=== PATIENT | male | born 1960 | race Caucasian/White ===

== ENCOUNTER → 2017-11-13 | Outpatient (CLI) | payer MEDICARE, SELFPAY | PROVIDERS: Family Provider Family Medicine; Visit Provider Family Medicine | DX: Z12.2 Encounter for screening for malignant neoplasm of respiratory organs; Z87.891 Personal history of nicotine dependence; F17.200 Nicotine dependence, unspecified, uncomplicated; Z72.0 Tobacco use ==

== ENCOUNTER 2018-02-10 09:04 | Day surgery (SDC) | payer MEDICARE, SELFPAY ==
[2018-02-04 13:52] VITALS: BMI 30.4
[2018-02-10] VITALS (7 sets, daily range): BP systolic 111–155; BP diastolic 45–86; PULSE 59–82; RESP 16–20; TEMP 36.2–36.7; O2SAT 94–97
--- NOTE | 2018-02-10 10:00 | P.PN_ITS ---
[facility] Anesthesia Checklist - Patient Identification Patient Identification: Arm Band, Verbal (Name & ) - Structural Data Admitted From: Home Planned Operative Procedure/s: colonoscopy Consent for Planned Operative Procedure(s) Verified: Yes Verified Documents: Surgical Consent, History and Physical - NPO Status Verified Time NPO: 00:00 - Chart Verification Results Verified: CBC, BMP - Additional verifications Patient : No Anesthesia Reactions: No Hx Blood Transfusions: No Blood Transfusion Reaction: No Cephalosporin Allergy: No Previous Colonoscopy: Yes - Cardiovascular Assessment Heart Sounds: S1 & S2 Pulse Strength: Baseline Pulse Rhythm: Regular Peripheral Edema: No - Airway Assessment C-Spine Mobility Assessed: Yes TMJ Mobility Assessed: Yes Dentition: Edentulous - Neurological Assessment Level of Consciousness: Awake, Alert, Appropriate Hx Seizures: No Numbness or tingling in extremities: No - Anesthesia Plan Anesthesia Risk discussed: Yes Anesthesia Plan: Verified ASA Class: III Anesthesia Type: MAC () [facility] Anesthesia HX I have reviewed the patient's past medical history: Yes Medical History: Reports:: Chronic Obstructive Pulmonary Disease (COPD), Hyperlipidemia, Lung Disease (copd, smoker 1ppd) Denies:: Diabetes Mellitus Type 1, Diabetes Mellitus Type 2, Internal Pacemaker, Seizures Other Surgeries: No: Pacemaker *Family Hx:: Unable to obtain
--- NOTE | 2018-02-10 12:06 | P.PCN_ITS ---
[facility] Procedure Note Procedure Note:: Colonoscopy Procedure Report: Colonoscopy with cold snare polypectomy, snare cautery and Endo Clip placement Endoscopist: Michael Alvarez II, MD Referring physician: Sergei Walker MD Date of Procedure: February 10, 2018 Equipment: Olympus 180 variable stiffness pediatric colonoscope Sedation: MAC sedation Indication: Mr. Dozier is a 57-year-old gentleman who is here for follow-up screening/surveillance colonoscopy. The patient did have a colonoscopy by Dr. Jorge Alberto Jalloh in 2013 and had 2 polyps removed. The preparation at that time was fair. The patient reports no abdominal pain, weight loss, change in his bowel habit or rectal bleeding. He reports no family history of colon cancer. Procedure: Prior to the procedure, a history and physical exam was performed, and patient' s medications and allergies were reviewed. The risks, benefits and alternatives of the sedation and procedure were discussed with the patient. All questions were answered and informed consent was obtained. The patient was brought to the procedure room. Patient identification and proposed procedure were verified by the physician and the nurse. The patient was placed in a left lateral decubitus position and the scope was passed under direct vision. Throughout the procedure, the patient's blood pressure, pulse, and oxygen saturations were monitored continuously. The colonoscopy was accomplished without difficulty. The patient tolerated the procedure well. Findings: On digital rectal examination there was normal rectal tone. There were no external hemorrhoids. The prostate was 2+, smooth, symmetric without nodules. The colonoscope was introduced through the anal canal to the rectum and advanced to the cecum. The ileocecal valve and appendiceal orifice were identified. The scope was advanced a short distance into the ileum which appeared grossly normal. The scope was then withdrawn into the colon. There were 2 diminutive 4-5 mm colon polyps identified in the descending colon ?2 and were removed via cold snare polypectomy. There was a larger pedunculated 30 mm sigmoid polyp that was removed via snare cautery. Because of its location and some patient movement during exam, this was a little more difficult but was removed in entirety. The stalk was clipped using 2 endoclips to prevent post polypectomy bleeding. There were scattered extensive diverticuli throughout the descending and sigmoid colon (LEFT colon). The rectum itself was normal. Upon retroflexion within the rectum there were grade 1 internal hemorrhoids. Impression: 1. Large pedunculated 30 mm sigmoid polyp 2. Diminutive colonic polyps ?2 (descending colon) 3. Extensive left-sided diverticulosis 4. Grade 1 internal hemorrhoids Plan: I will follow-up the polyp histology/pathology and recommend repeat screening colonoscopy again in 1-2 years based upon the more advanced sigmoid polyp. I will discuss this with the patient and family. I would encourage fiber bulk supplementation on a long-term daily maintenance basis.
== END 2018-02-10 13:05 | disposition home or self-care (01) ==
LOC: OUTP 09:06
PROVIDERS: Family Provider Family Medicine; PCP Family Medicine; Visit Provider Internal Medicine Gastroenterology
PROC: 0DJD8ZZ Inspection of Lower Intestinal Tract, Via Natural or Artificial Opening Endoscopic (ICD-10-PCS; CPT 45378; principal; 2018-02-10 11:00)
DX: Z12.11 Encounter for screening for malignant neoplasm of colon (principal); K63.5 Polyp of colon; K57.30 Diverticulosis of large intestine without perforation or abscess without bleeding; K64.0 First degree hemorrhoids; Z86.010 Personal history of colon polyps
CPT/HCPCS: 45380; 45385; 88305

== ENCOUNTER → 2019-09-11 08:26 | Outpatient (CLI) | payer MEDICARE, SELFPAY ==
[2019-09-11 08:44] LABS: Blood Urea Nitrogen 16 mg/dL (7-18); Creatinine,Serum 1.03 mg/dL (0.70-1.30); Estimated Glomerular Filt Rate 74 ml/min (>60); GFR (African American) 89 ML/MIN (>60)
--- NOTE | 2019-09-11 09:07 | US_ITS ---
PROCEDURE: US ABD. AORTA SCREENING CLINICAL INDICATION: ABD PAIN,AAA Hypertension, smoker COMPARISON: No exams were available for comparison FINDINGS: No evidence of abdominal aortic aneurysm. There are some mild atheromatous changes of the aorta. The proximal common iliacs are unremarkable IMPRESSION: No evidence of abdominal aortic aneurysm Dictated by: Talib Simental MD 09/11/2019 12:02 Electronically signed by Talib Simental MD in [place] 09/11/2019 12:02
--- NOTE | 2019-09-11 09:25 | CT_ITS ---
PROCEDURE: CT CHEST W CON CLINCAL INDICATION: CT ABN LUNG SCAN Current smoker and smoker for over 36 years, abnormal low-dose screening CT exam of the chest COMPARISON: Low-dose screening CT exam of the chest 11/13/2017 No exams were available for comparison TECHNIQUE: IV Contrast: 75ml Optiray 350 Axial images obtained with sagittal and coronal reformats. All CT scans at the facility use one or more dose reduction, viz: automated exposure control, ma/kV adjustment per patient size (including targeted exams where dose is matched to indication, i.e. head), or iterative reconstruction technique. FINDINGS: HEART: Unremarkable. Normal heart size. No significant pericardial effusion. MEDIASTINAL AND HILAR STRUCTURES: There small calcified bilateral hilar and subcarinal nodes. PULMONARY ARTERIES: The timing for vascular opacification of the pulmonary less than satisfactory but there is no obvious pulmonary embolus.. AORTA: There is mild aortic tortuosity LUNGS: There is marked hyperexpansion of the lung dominguez with depression of the hemidiaphragms. Severe far advanced emphysematous changes are noted primarily centrilobular type. The changes are most severe in the upper lobes bilaterally. Fibrotic scarring is seen in the right apex with multiple calcifications noted. There is a large jalyn posterior segment right upper lobe measuring 11.8 by 9.3 cm on the axial image by 10.2 cm superior inferior dimension on the coronal sequence extending from the level of the top of the aortic arch to the lung apex. PLEURAL SPACES: No significant effusion. No evidence of pneumothorax. BONY STRUCTURES: There is mild diffuse dextroscoliotic curvature of the upper thoracic spine. LYMPH NODES: Calcified bilateral hilar and subcarinal nodes as noted UPPER ABDOMEN: The right adrenal gland appears normal, there may be mild hyperplasia left adrenal gland. ADDITIONAL FINDINGS: No other significant abnormalities. IMPRESSION: Severe far advanced centrilobular emphysema primarily involving the upper lobes with evidence of old granulomatous disease, no acute pneumonic infiltrate or pulmonary embolus identified Dictated by: Dr. Sriram Corona MD 09/11/2019 12:[address] Sriram Corona MD in [place] 09/11/2019 12:57
== END ==
PROVIDERS: PCP Family Medicine; Visit Provider Family Medicine
DX: Z13.6 Encounter for screening for cardiovascular disorders (principal); R91.8 Other nonspecific abnormal finding of lung field
CPT/HCPCS: 36415; 71260; 76705; 82565; 84520; Q9967

== ENCOUNTER → 2020-04-01 14:47 | Outpatient (CLI) | payer MEDICARE, SELFPAY ==
--- NOTE | 2020-04-01 14:54 | CT_ITS ---
PROCEDURE: CT LUNG SCREENING CLINICAL INDICATION: H/O NICOTINE DEPENDENCE 30+ pack smoking history COMPARISON: CT CHEST W CON from 09/11/2019 TECHNIQUE: The exam was performed on a GE Light Speed [address] scanner using 2.90 mGy CTDI. A low dose helical CT CHEST was performed on a multi-detector scanner. All CT scans at the facility use one or more dose reduction, viz: automated exposure control, ma/kV adjustment per patient size (including targeted exams where dose is matched to indication, i.e. head), or iterative reconstruction technique. The LDCT was performed in a facility that meets the criteria for the screening program. Data regarding this exam was submitted to ACR which is an approved registry. The order for this exam indicates that it came as a result of a lung cancer screening counseling shard decision-making visit that included all the elements required of such a visit including smoking cessation. The radiologist interpreting this exam meets the [facility] criteria for the LDCT lung cancer screening program. The exam is reported using the Lung-RADS classification scale and reported to the ACR registry. NOTE: This study was performed for the specific purposes of lung cancer screening and is not an alternative to diagnostic chest CT. RADIATION DOSE: CTDI vol(CT dose Index-volume) = 2.90mG DLP (Dose Length Product) = 114.38 mGcm Lung Rads Category: FINDINGS: Severe panlobular emphysema with bullous changes and evidence of old granulomatous disease with scattered areas of scarring. Fibrocalcific changes are present in the right upper lobe. No suspicious nodules are evident. OTHER FINDINGS: No other pertinent findings evident. IMPRESSION: Lung rads category 2 benign. Recommend 12 month LDCT Dictated by: Talib Simental MD 04/17/2020 09:52 Electronically signed by Talib Simental MD in [place] 04/17/2020 09:52
== END ==
PROVIDERS: PCP Family Medicine; Visit Provider Family Medicine
DX: Z87.891 Personal history of nicotine dependence (principal); Z12.2 Encounter for screening for malignant neoplasm of respiratory organs

== ENCOUNTER → 2022-02-06 15:01 | Outpatient (CLI) | payer MEDICARE, SELFPAY ==
--- NOTE | 2022-02-06 15:05 | CT_ITS ---
FINAL REPORT CLINICAL HISTORY: smoker, 1 ppd x 40 years. copd and emphysema, no h/o cancer COMPARISON: September 11, 2019 and April 01, 2020 FINDINGS: Low-Dose Chest CT CTDI vol (mGy): 2.90 DLP (mGy-cm): 106.29 Axial images were obtained from the lung apex to the mid abdomen by computed tomography. Low-dose protocol was utilized. FINDINGS: CHEST: There is no axillary mass or adenopathy. There are several borderline size mediastinal lymph nodes. There are calcified mediastinal and hilar lymph nodes. The heart is proper size. There is no pericardial or pleural effusion. Limited images of the upper abdomen are unremarkable. Lung window images demonstrate severe changes of emphysema. There is mild scarring. There are multiple calcified granulomas. There are scattered, less than 5 mm, noncalcified pulmonary nodules which are visual stable from the prior exams. No new mass or suspicious nodule is identified. IMPRESSION: Lung RADS category 1. Recommend 12 month follow-up low-dose chest CT. Reviewed, Interpreted and Dictated by Jorge Alberto Ortega III, MD Transcribed by Rosemary Villatoro Authenticated by Jorge Alberto Ortega III, MD on 02/06/2022 04:41:34 PM [facility]
== END ==
PROVIDERS: PCP Family Medicine; Visit Provider Family Medicine
DX: Z87.891 Personal history of nicotine dependence (principal); Z12.2 Encounter for screening for malignant neoplasm of respiratory organs
CPT/HCPCS: 71271

== ENCOUNTER → 2022-09-24 11:22 | Outpatient (CLI) | payer MEDICARE, SELFPAY ==
[2022-09-24 18:59] LABS: Chol/HDL Ratio 4.3 (1-3.5); Cholesterol 187 mg/dl (140-200); HDL Cholesterol 43 mg/dl (40-60); Triglycerides 148 mg/dl (30-150); VLDL Cholesterol 30 mg/dL (0-40)
[2022-09-24 19:11] LABS: Direct LDL Cholesterol 103.81 mg/dL (100-129)
[2022-09-24 19:33] LABS: Prostate Specific Ag Screen 1.2 ng/ml (0.0-4.0)
[2022-09-25 09:24] LABS: Chloride 97 mmol/L (98-107); Sodium 140 mmol/L (136-145)
[2022-09-25 09:25] LABS: Potassium 5.9 mmoL/L (3.5-5.1)
[2022-09-25 09:27] LABS: Alanine Aminotransferase 27 U/L (12-78); Albumin Level 4.2 g/dl (3.5-5.0); Alkaline Phosphatase 114 U/L (38-126); Anion Gap 13.9 mEq/L (5-15); Aspartate Amino Transferase 29 U/L (17-59); Bilirubin,Total 0.2 mg/dl (0.2-1.3); Blood Urea Nitrogen 18 mg/dl (9-20); Carbon Dioxide 35 mmol/L (22.0-30.0); Estimated Glomerular Filt Rate 98 ml/min (>60); GFR (African American) 118 ML/MIN (>60)
[2022-09-25 09:28] LABS: Albumin/Globulin Ratio 1.6 (1.1-1.8); Calcium 9.6 mg/dl (8.4-10.2); Globulin 2.7 g/dL (1.3-3.2); Glucose 128 mg/dl (74-100); Total Protein,Serum 6.9 g/dl (6.3-8.2)
== END ==
PROVIDERS: PCP Family Medicine; Visit Provider Family Medicine
DX: Z12.5 Encounter for screening for malignant neoplasm of prostate (principal); I10 Essential (primary) hypertension
CPT/HCPCS: 80053; 80061; G0103

== ENCOUNTER → 2023-05-11 09:08 | Outpatient (CLI) | payer MEDICARE, SELFPAY ==
[2023-05-10 17:55] LABS: Chloride 97 mmol/L (98-107)
[2023-05-10 17:56] LABS: Sodium 140 mmol/L (136-145)
[2023-05-10 17:58] LABS: Alanine Aminotransferase 30 U/L (12-78); Alkaline Phosphatase 92 U/L (38-126); Anion Gap 16.5 mEq/L (5-15); Aspartate Amino Transferase 33 U/L (17-59); Bilirubin,Total 0.2 mg/dl (0.2-1.3); Blood Urea Nitrogen 21 mg/dl (9-20); Carbon Dioxide 33 mmol/L (22.0-30.0); Estimated Glomerular Filt Rate 98 ml/min (>60); GFR (African American) 118 ML/MIN (>60)
[2023-05-10 17:59] LABS: Albumin Level 4.1 g/dl (3.5-5.0); Albumin/Globulin Ratio 1.4 (1.1-1.8); Calcium 9.2 mg/dl (8.4-10.2); Globulin 2.9 g/dL (1.3-3.2); Glucose 91 mg/dl (74-100)
[2023-05-10 18:20] LABS: Potassium 6.5 mmoL/L (3.5-5.1)
== END ==
PROVIDERS: PCP Family Medicine; Visit Provider Family Medicine
DX: I10 Essential (primary) hypertension (principal)
CPT/HCPCS: 80053

== ENCOUNTER → 2023-05-21 10:18 | Outpatient (CLI) | payer MEDICARE, SELFPAY ==
[2023-05-21 19:04] LABS: Anion Gap 14.7 mEq/L (5-15); Blood Urea Nitrogen 20 mg/dl (9-20); Calcium 8.8 mg/dl (8.4-10.2); Carbon Dioxide 33 mmol/L (22.0-30.0); Chloride 95 mmol/L (98-107); Estimated Glomerular Filt Rate 114 ml/min (>60); GFR (African American) 138 ML/MIN (>60); Glucose 114 mg/dl (74-100); Potassium 4.7 mmoL/L (3.5-5.1); Sodium 138 mmol/L (136-145)
== END ==
PROVIDERS: PCP Family Medicine; Visit Provider Family Medicine
DX: R73.9 Hyperglycemia, unspecified (principal)
CPT/HCPCS: 80048

== ENCOUNTER → 2023-08-13 11:00 | Outpatient (CLI) | payer MEDICARE, SELFPAY ==
[2023-08-13 20:55] LABS: Chloride 97 mmol/L (98-107); Potassium 4.7 mmoL/L (3.5-5.1); Sodium 138 mmol/L (136-145)
[2023-08-13 20:58] LABS: Alanine Aminotransferase 17 U/L (12-78); Albumin/Globulin Ratio 1.3 (1.1-1.8); Alkaline Phosphatase 94 U/L (38-126); Anion Gap 12.7 mEq/L (5-15); Aspartate Amino Transferase 23 U/L (17-59); Bilirubin,Total 0.3 mg/dl (0.2-1.3); Blood Urea Nitrogen 17 mg/dl (9-20); Carbon Dioxide 33 mmol/L (22.0-30.0); Estimated Glomerular Filt Rate 97 ml/min (>60); GFR (African American) 118 ML/MIN (>60)
[2023-08-13 20:59] LABS: Calcium 8.8 mg/dl (8.4-10.2); Glucose 100 mg/dl (74-100)
== END ==
PROVIDERS: PCP Family Medicine; Visit Provider Family Medicine
DX: I10 Essential (primary) hypertension (principal)
CPT/HCPCS: 80053

== ENCOUNTER → 2023-08-27 14:52 | Outpatient (CLI) | payer MEDICARE, SELFPAY ==
--- NOTE | 2023-08-27 14:56 | CT_ITS ---
FINAL REPORT TECHNIQUE: Axial CT images of the chest were obtained without contrast. Low-dose protocol was utilized. This study was performed with techniques to keep radiation doses as low as reasonably achievable (ALARA). Individualized dose reduction techniques using automated exposure control or adjustment of mA and/or kV according to the patient's size were employed. CLINICAL HISTORY: lung cancer screening smoked 1 pk per day x 40 yrs copd, empysema COMPARISON: 02/06/2022 FINDINGS: CT CHEST WITHOUT, LOW DOSE SCREENING CT Di Vol: 2.90 mGy DLP: 111.51 mGy*cm There is no axillary, mediastinal, or hilar adenopathy. The heart size is normal. There is no pleural or pericardial effusion. The lung windows show a 2 mm right lower lobe nodule seen on image 64 and a 2 mm nodule in the left lower lobe seen on image 59. There are several other less than 5 mm nodules which are stable. No new mass or nodule identified. There is severe emphysema. There are multiple calcified granulomas. Limited images of the upper abdomen demonstrate no acute findings. IMPRESSION: Stable exam. No new mass or nodule. LR Category 1: 12 month follow-up low-dose chest CT is recommended. Reviewed, Interpreted and Dictated by Jorge Alberto Ortega III, MD Transcribed by Tanvi Tamayo Authenticated and [facility]
== END ==
PROVIDERS: PCP Family Medicine; Visit Provider Family Medicine
DX: Z87.891 Personal history of nicotine dependence; Z12.2 Encounter for screening for malignant neoplasm of respiratory organs
CPT/HCPCS: 71271

== ENCOUNTER 2024-09-22 18:36 | Outpatient (CLI) | payer MEDICARE, SELFPAY ==
[2024-09-22 19:23] LABS: Basophils # 0.1 K/mm3 (0-0.2); Eosinophils # 0.4 K/mm3 (0.0-0.4); Eosinophils % 4.3 % (0.1-12.0); Hemoglobin 14.5 g/dL (14.1-18.0); Lymphocytes # 2.8 K/mm3 (0.7-4.5); Lymphocytes % 33.6 % (10-50); Mean Corpuscular HGB Conc 33.7 g/dL (31.8-35.4); Mean Corpuscular Hemoglobin 29.7 pg (27.0-31.2); Mean Corpuscular Volume 88.3 fl (80-94); Mean Platelet Volume 8.4 fl (7.4-10.4); Monocytes # 0.7 K/mm3 (0.1-1.0); Monocytes % 8.2 % (1.7-9.3); Neutrophils # 4.4 K/mm3 (1.8-7.8); Neutrophils % 52.8 % (37.0-80.0); Platelet Count 250 K/mm3 (142-424); Red Blood Count 4.87 M/mm3 (4.60-6.20); Red Cell Distribution Width 13.9 % (11.5-17.5); White Blood Count 8.4 K/mm3 (4.8-10.8)
[2024-09-22 20:04] LABS: Albumin Level 3.9 g/dl (3.5-5.0)
[2024-09-22 20:07] LABS: Alanine Aminotransferase 23 U/L (12-78); Alkaline Phosphatase 84 U/L (38-126); Aspartate Amino Transferase 23 U/L (17-59); Bilirubin,Total 0.4 mg/dl (0.2-1.3); Blood Urea Nitrogen 19 mg/dl (9-20); Carbon Dioxide 32 mmol/L (22.0-30.0); Estimated Glomerular Filt Rate 97 ml/min (>60); GFR (African American) 117 ML/MIN (>60)
[2024-09-22 20:12] LABS: Anion Gap 9.3 mEq/L (5-15); Chloride 102 mmol/L (98-107); Potassium 4.3 mmoL/L (3.5-5.1); Sodium 139 mmol/L (136-145)
[2024-09-22 20:16] LABS: Albumin/Globulin Ratio 1.5 (1.1-1.8); Calcium 8.7 mg/dl (8.4-10.2); Globulin 2.6 g/dL (1.3-3.2); Glucose 132 mg/dl (74-100); Total Protein,Serum 6.5 g/dl (6.3-8.2)
[2024-09-22 20:47] LABS: Thyroid Stimulating Hormone 1.05 uIU/mL (0.465-4.68)
[2024-09-22 22:03] LABS: Prostate Specific Ag Screen 1.6 ng/ml (0.0-4.0)
== END 2024-09-22 23:59 | disposition home or self-care (01) ==
LOC: LAB 18:37
PROVIDERS: PCP Family Medicine; Visit Provider Family Medicine
DX: R53.83 Other fatigue (principal); I10 Essential (primary) hypertension; N40.0 Benign prostatic hyperplasia without lower urinary tract symptoms; Z95.5 Presence of coronary angioplasty implant and graft; Z12.5 Encounter for screening for malignant neoplasm of prostate
CPT/HCPCS: 80053; 84443; 85025; G0103

== ENCOUNTER 2024-12-17 14:02 | Outpatient (CLI) | payer MEDICARE, SELFPAY ==
[2024-12-18 10:02] LABS: Alanine Aminotransferase 26 U/L (12-78); Albumin Level 4.3 g/dl (3.5-5.0); Albumin/Globulin Ratio 1.8 (1.1-1.8); Alkaline Phosphatase 103 U/L (38-126); Aspartate Amino Transferase 29 U/L (17-59); Bilirubin,Total 0.4 mg/dl (0.2-1.3); Blood Urea Nitrogen 22 mg/dl (9-20); Carbon Dioxide 31 mmol/L (22.0-30.0); Chloride 100 mmol/L (98-107); Chol/HDL Ratio 2.8 (1-3.5); Cholesterol 130 mg/dl (140-200); Estimated Glomerular Filt Rate 85 ml/min (>60); GFR (African American) 102 ML/MIN (>60); Globulin 2.4 g/dL (1.3-3.2); Glucose 118 mg/dl (74-100); HDL Cholesterol 46 mg/dl (40-60); Sodium 138 mmol/L (136-145); Total Protein,Serum 6.7 g/dl (6.3-8.2); Triglycerides 135 mg/dl (30-150); VLDL Cholesterol 27 mg/dL (0-40)
[2024-12-18 10:32] LABS: Thyroid Stimulating Hormone 1.06 uIU/mL (0.465-4.68)
== END 2024-12-17 23:59 | disposition home or self-care (01) ==
LOC: LAB.DROPOF 12-21 14:03
PROVIDERS: PCP Family Medicine; Visit Provider Family Medicine
DX: E78.5 Hyperlipidemia, unspecified (principal); I10 Essential (primary) hypertension; E11.9 Type 2 diabetes mellitus without complications; Z95.5 Presence of coronary angioplasty implant and graft
CPT/HCPCS: 80053; 80061; 84443

== ENCOUNTER 2025-01-26 10:05 | Outpatient (CLI) | payer MEDICARE, SELFPAY ==
[2025-01-26 21:34] LABS: Chloride 102 mmol/L (98-107); Potassium 4.5 mmoL/L (3.5-5.1); Sodium 141 mmol/L (136-145)
[2025-01-26 21:37] LABS: Anion Gap 12.5 mEq/L (5-15); Blood Urea Nitrogen 21 mg/dl (9-20); Calcium 9.1 mg/dl (8.4-10.2); Carbon Dioxide 31 mmol/L (22.0-30.0); Estimated Glomerular Filt Rate 75 ml/min (>60); GFR (African American) 91 ML/MIN (>60); Glucose 89 mg/dl (74-100)
== END 2025-01-26 23:59 | disposition home or self-care (01) ==
LOC: LAB.DROPOF 01-27 10:05
PROVIDERS: PCP Family Medicine; Visit Provider Family Medicine
DX: E11.9 Type 2 diabetes mellitus without complications (principal)
CPT/HCPCS: 80048

== ENCOUNTER 2025-10-12 10:00 | Outpatient (CLI) | payer MEDICARE, SELFPAY ==
[2025-10-12 15:40] LABS: Alanine Aminotransferase 26 U/L (12-78); Albumin Level 4.3 g/dl (3.5-5.0); Albumin/Globulin Ratio 1.5 (1.1-1.8); Alkaline Phosphatase 109 U/L (38-126); Anion Gap 9.8 mEq/L (5-15); Aspartate Amino Transferase 28 U/L (17-59); Bilirubin,Total 0.4 mg/dl (0.2-1.3); Blood Urea Nitrogen 19 mg/dl (9-20); Calcium 9.4 mg/dl (8.4-10.2); Carbon Dioxide 31 mmol/L (22.0-30.0); Chloride 99 mmol/L (98-107); Creatinine,Serum 1.00 mg/dl (0.66-1.25); Estimated Glomerular Filt Rate 75 ml/min (>60); GFR (African American) 90 ML/MIN (>60); Globulin 2.8 g/dL (1.3-3.2); Glucose 110 mg/dl (74-100); Potassium 4.8 mmoL/L (3.5-5.1); Sodium 135 mmol/L (136-145); Total Protein,Serum 7.1 g/dl (6.3-8.2)
--- OUTSIDE RECORDS SUMMARY | 2025-10-13 15:06 | XMS_ITS | Clinical Summary ---
Author Organization [facility] Address [address] [place] [address] Phone Care Team Providers Care Administrative Director Name Role Phone Miri Baker DO Primary Care Provider Allergies No known active allergies Medications albuterol sulfate (ACCUNEB) 2.5 mg/0.5 mL Inhl Solution for Nebulization Take 2.5 mg by nebulization 0800, 1200, 1600, 2000. Active PARoxetine (PAXIL) 20 mg Oral TabletIndicatio ns:Generalized anxiety disorder TAKE 1 TABLET BY MOUTH ONCE DAILY FOR NERVES 01/27/20 24 Active aspirin 81 mg Oral Tablet, Chewable Take 1 Tablet by mouth daily (with breakfast). 03/26/20 24 Active lisinopriL-hydr ochlorothiazide (PRINZIDE;ZESTO RETIC) 20-12.5 mg Oral TabletIndicatio ns:Essential hypertension Take 1 Tablet by mouth daily. 05/06/20 24 Active ticagrelor (BRILINTA) 90 mg Oral Tablet Take 1 Tablet by mouth 2 times daily. 180 Tablet 3 09/08/20 24 Active atorvastatin (LIPITOR) 80 mg Oral TabletIndicatio ns:Hyperlipidem ia with target LDL less than 100 Take 1 Tablet by mouth daily for 360 days. 07/29/20 25 2025 Active metoprolol (LOPRESSOR) 25 mg Oral Tablet Take 0.5 Tablets by mouth every 12 hours. 90 Tablet 2 08/03/20 25 Active metFORMIN (GLUCOPHAGE) 500 mg Oral Tablet Take 500 mg by mouth 2 times daily. 06/26/20 25 Active ezetimibe (ZETIA) 10 mg Oral Tablet TAKE 1 TABLET EVERY NIGHT 90 Tablet 3 09/15/20 Active ezetimibe (ZETIA) 10 mg Oral Tablet TAKE 1 TABLET EVERY NIGHT 90 Tablet 3 11/26/19 25 2024 Discontinued Active Problems Problem Noted Date Diagnosed Date Prediabetes 07/29/2025 Pulmonary emphysema 07/28/2025 Assessment & Plan (07/28/2025 8:36 AM EDT): Noted upon chart review, seen on chest xray Quit smoking Hx of heart artery stent 03/30/2024 Overview (03/30/2024): cath 03/23 Left Anterior Descending The vessel is large. There is moderate diffuse disease throughout the vessel. This vessel is tortuous. Prox LAD to Mid LAD lesion is 70% stenosed. Left Circumflex The vessel is large. There is mild diffuse disease throughout the vessel. Mid Cx to Dist Cx lesion is 50% stenosed. Right Coronary Artery Prox RCA lesion is 100% stenosed. Prox RCA lesion Stent Left Ventricle The left ventricular size is normal. The ejection fraction is 50- 55% by visual estimate. Aortic Valve There is no aortic valve stenosis. Left Heart Pressures LVEDP /post-A wave : 12 mmHg 1. Coronary artery disease as described above: Moderate stenosis of the left circumflex artery and significant stenosis of the left anterior descending artery 2. Total occluded right coronary artery with successful PTCA and a 4.0 x 28 drug-eluting stent placement and reduction of the stenosis to 0% and advent of the KODI-3 flow 3. Left ventricular systolic function is normal Stent placed 2023- DAPT with aspirin and brilinta Follow up with cardiology Assessment & Plan (03/30/2024 4:41 PM EDT): Stent placed 2023- DAPT with aspirin and brilinta Follow up with cardiology History of ST elevation myocardial infarction (S ABEL) 03/23/2024 Overview (03/25/2024): cath 03/23 Left Anterior Descending The vessel is large. There is moderate diffuse disease throughout the vessel. This vessel is tortuous. Prox LAD to Mid LAD lesion is 70% stenosed. Left Circumflex The vessel is large. There is mild diffuse disease throughout the vessel. Mid Cx to Dist Cx lesion is 50% stenosed. Right Coronary Artery Prox RCA lesion is 100% stenosed. Prox RCA lesion Stent Left Ventricle The left ventricular size is normal. The ejection fraction is 50- 55% by visual estimate. Aortic Valve There is no aortic valve stenosis. Left Heart Pressures LVEDP /post-A wave : 12 mmHg 1. Coronary artery disease as described above: Moderate stenosis of the left circumflex artery and significant stenosis of the left anterior descending artery 2. Total occluded right coronary artery with successful PTCA and a 4.0 x 28 drug-eluting stent placement and reduction of the stenosis to 0% and advent of the KODI-3 flow 3. Left ventricular systolic function is normal Echo 03/23 * Left ventricular chamber dimension is normal. * Left ventricular function is low normal with an estimated ejection fraction of 50-55%. * The left ventricular diastolic function is consistent with stage I diastolic dysfunction (normal left atrial pressure). * Right ventricular systolic function is normal. * Unable to estimate pulmonary arterial systolic pressure due to lack of tricuspid regurgitation jet. * The inferior wall, and inferoseptal wall are hypokinetic. * All other driver appear normal. Plan: DAPT for a minimum of 12 months Daily aspirin indefinitely Assess the LAD clinically: May require intervention in the future -Inferior wall DC -s/p PCI of prox RCA. - Pt on Statin, ASA, BB, and Brilinta - decreasing Lopressor to 1/2 tab d/t bradycardia Assessment & Plan (03/30/2024 4:39 PM EDT): Continue follow-up with cardiology Continue aspirin, Brilinta, metoprolol Generalized anxiety disorder 01/27/2024 Overview (03/02/2024): Stable on paxil Assessment & Plan (01/27/2024 11:54 AM EST): Stable on paxil for years Essential hypertension 01/27/2024 Overview (03/30/2024): History of lisinopril/hctz, was stopped after hospital admission for DC by cardiology Assessment & Plan (07/28/2025 8:37 AM EDT): Goal BP: <130/80 BP Readings from Last 3 Encounters: 07/28/25 110/70 06/23/24 110/66 05/27/24 130/80 - at goal Compliance: - compliant with medications Medication Management: - a reassessment of the patients current diagnoses, medications, labs, potential SE, appropriate dose and risks assessed and discussed today Continue metoprolol Continue to follow with cardiology Assessment & Plan (03/30/2024 4:39 PM EDT): Goal BP: <140/90 in office and <135/85 at home - at goal Compliance: - compliant with medications Medication Management: - a reassessment of the patients current diagnoses, medications, labs, potential SE, appropriate dose and risks assessed and discussed today Continue metoprolol Continue follow-up with cardiology Assessment & Plan (01/27/2024 11:45 AM EST): Goal BP: <140/90 in office and <135/85 at home - at goal Compliance: - compliant with medications Medication Management: - a reassessment of the patients current diagnoses, medications, labs, potential SE, appropriate dose and risks assessed and discussed today Continue lisinopril-HCTZ 20-12.5 Hyperlipidemia with target LDL less than 100 02/2024 Overview (03/25/2024): may consider referral to specialty pharmacy to consider PCKS9- pt has 70% blockage of LAD. LDL 92 Assessment & Plan (01/27/2024 11:54 AM EST): Stable Continue statin Resolved Problems Problem Noted Date Diagnosed Date Resolved Date Tobacco abuse disorder 04/02/202407/28 Tobacco abuse counseling 04/02/202401/2025 Cough with hemoptysis 04/02/20242024 Encounters Date Type Department Care Team Description 09/15/2025 Refill [facility] [place] [phone] Miri Baker, DO Medication Refill 08/30/2025 Orders Only [facility] [place] [phone] Thea Sen MA 08/03/2025 Refill [facility] [address] [place] [phone] Miri Baker, DO Medication Refill 07/30/[address] [place] [phone] Miri Baker, DO Results 07/29/2025 Results Follow-Up [address] [place] [phone] Miri Baker, DO LIPID PANEL REFLEX, HEMOGLOBIN A1C, CBC WITH DIFF, Additional followed-up results: 2 07/28/2025 8:00 AM EDT Office Visit [address] [place] [phone] Miri Baker, Medicare annual wellness visit, subsequent (Primary Dx); Screening for malignant neoplasm of prostate; Personal history of smoking; Diabetes mellitus screening; Essential hypertension; Hyperlipidemia with target LDL less than 100; Pulmonary emphysema, unspecified emphysema type (HCC) 07/23/2025 Patient Outreach [facility] [address] [place] [address] Miri Baker, Central Patient Navigator Outreach (AWV questionnaire ) 07/17/2025 Refill [facility] [address] [address] Constance Joiner MD Medication Refill from Last 3 Months Surgical History Surgery Date Site/Laterality Comments CORONARY PERCUTANEOUS INTERVENTION(PCI) 03/23/2024 N/A Surgeon: Constance Joiner MD; Location: [facility]; Service: Cardiac Medical devices from this surgery are in the Medical Devices section. COLONOSCOPY Medical History Medical History Date Comments Diverticulitis COPD (chronic obstructive pulmonary disease) (HC C) Social History Tobacco Use Types Packs/Day Years Used Date Smoking Tobacco: Former Cigarettes Tobacco Cessation:Counseling Given: Not Answered Alcohol Use Standard Drinks/Week Comments No 0 (1 standard drink = 0.6 oz pur e alcohol) [facility] Utilities Answer Date Recorded In the past 12 months has th e electric, gas, oil, or water company threatened to shut off services in your home? No 03/24/2024 Overall Financial Resource Strain (CARDIA) Answe r Date Recorded How hard is it for you to pa y for the very basics like food, housing, medical care, and heating? Not very hard 03/24/2024 PHQ-2 Answer Date Recorded PHQ-2 Total Score 0 07/28/2025 [facility] - Occupational Stress Questionnaire Answer Date Recorded Do you feel stress - tense, restless, nervous, or anxious, or unable to sleep at night because your mind is troubled all the time - these days? Only a little 03/24/2024 Exercise Vital Sign Answer Date Recorde d On average, how many days pe r week do you engage in moderate to strenuous exercise (like a brisk walk)? 4 days 03/24/2024 On average, how many minutes do you engage in exercise at this level? 30 min 03/24/2024 Hunger Vital Sign Answer Date Recorded Within the past 12 months, y ou worried that your food would run out before you got the money to buy more. Never true 03/24/20 24 Within the past 12 months, t he food you bought just didn't last and you didn't have money to get more. Never true 03/24/2024 [facility] IP Transportation Answer D ate Recorded In the past 12 months, has l ack of reliable transportation kept you from medical appointments, meetings, work or from getting things needed for daily living? No 03/24/2024 Sex and Gender Information Value Date Recorded Sex Assigned at Not on file Legal Sex Male 4:04 AM EDT Gender Identity Not on file Sexual Orientation Not on file Last Filed Vital Signs Vital Sign Reading Time Taken Comments Blood Pressure 110/70 07/28/2025 7:53 AM EDT Pulse 55 07/28/2025 7:53 AM EDT Temperature 36.8 C (98.2 F) 07/28/2025 7:53 AM EDT Respiratory Rate 18 07/28/2025 7:53 AM EDT Oxygen Saturation 100% 07/28/2025 7:53 AM EDT Inhaled Oxygen Concentration - - Weight 89.4 kg (197 lb) 07/28/2025 7:53 AM EDT Height 175.3 cm (5' 9 ) 06/23/2024 1:12 PM EDT Body Mass Index 29.09 06/23/2024 1:12 PM EDT Plan of Treatment Health Maintenance Due Date Last Done Comments DTaP/TDaP/Td (1 - Tdap) 1978 Pneumococcal Vaccine 50+ (1 of 2 - PCV) 1978 Colonoscopy 2004 FIT 2004 Sigmoidoscopy 2004 Virtual Colonography 2004 RSV or 60+ (1 - Ris k 50-74 years 1-dose series) 2009 Zoster (1 of 2) 2009 AAA Screening 2024 COVID-19 Vaccine (1 - 2024-2 6 season) 2025 Influenza Vaccine (#1) 2025 Wellness Exam Medicare 07/29/2026 , 01/27/2024 Cologuard 03/10/2027 03/10/2024, 03/10/2024 Colon Cancer Screening 03/10/2027 Hepatitis C Screening Completed 01/27/2024 Hepatitis B Vaccine Aged Out No longe r eligible based on patient's age to complete this topic Meningococcal B Vaccine Aged Out No l onger eligible based on patient's age to complete this topic Goals Goal Patient Goal Type Associated Problems Recent Progress Patient-Stated? Author Blood Pressure < 140/90 Blood Pressure 110/70(2024 7:53 AM EDT) No Miri Baker DO Maintain a healthy diet, exercise regularly and maintain an ideal body weight General No Miri Bkaer, DO Stay Tobacco Free Lifestyle No Miri Baker, DO Medical Devices Implanted Type Area Textile Conversion Manager Device Identifier Shelf Expiration Date Model / Serial / Lot System Stent Coronary Abner Synergy Xd 4mm X 28mm Mr Rx [employer] - [id number] Implanted:Qty: 1 on 03/23/2024 by Constance Joiner MD at [facility] N/A: [employer] [id number] 04/02/2025 [id number] 400 / / [id number] Procedures Procedure Name Priority Date/Time Associated Diagnosis Comments PROSTATE SPECIFIC ANTIGEN (SCREENING) Routine 07/28/2025 8:18 AM EDT Screening for malignant neoplasm of prostate COMPREHENSIVE METABOLIC PANEL Routine 07/28/2025 8:18 AM EDT Essential hypertension CBC WITH DIFF Routine 07/28/2025 8:18 AM EDT Essential hypertension HEMOGLOBIN A1C Routine 07/28/2025 8:18 AM EDT Diabetes mellitus screening LIPID PANEL REFLEX Routine 07/28/2025 8: 18 AM EDT Hyperlipidemia with target LDL less than 100 COLOGUARD Routine 03/10/2024 2:30 PM EDT Special screening for malignant neoplasms, colon Screening for malignant neoplasm of the rectum HCV ANTIBODY SCREEN W/ REFLEX Routine 01/27/2024 11:01 AM EST Need for hepatitis C screening test from Last 3 Months or Most Recently Relevant to Health Maintenance Results * (ABNORMAL) LIPID PANEL REFLEX (07/28/2025 8:18 AM EDT) Cholesterol 159 <200 mg/dL 07/28/2025 4:59 PM EDT [facility] [employer] Comment: < 200 Desirable 200 - 239 Borderline High >= 240 High Triglyceride 212(H) <150 mg/dL 07/28/2025 4:59 PM EDT [facility] Comment: < 150 Normal 150 - 199 Borderline High 200 - 499 High >= 500 Very High HDL 47 >=40 mg/dL 07/28/2025 4:59 PM EDT [facility] Comment: > 60 Optimal 40 - 60 Acceptable < 40 Low LDL Calculated 77 <100 mg/dL 07/28/2025 4:59 PM EDT [facility] Comment: < 100 Optimal 100 - 129 Near or above optimal 130 - 159 Borderline High 160 - 189 High >= 190 Very High The National Institutes of Health (NIH) equation is used for all lipid panels that report calculated LDL (LDL-C). Non-HDL-C Calculated 112 <=129 mg/dL 07/28/2025 4:59 PM EDT [employer] Comment: <130 Desirable 130-159 Above Desirable 160-189 Borderline High 190-219 High >= 220 Very High Fasting Specimen? Yes None 025 4:59 PM EDT [facility] Blood VENOUS BLOOD / Unknown Venipuncture / Unknown 07/28/2025 8:18 AM EDT 07/28/2025 8:18 AM EDT Miri Baker DO CHEMISTRY ORDERABLES Final R esult Performing Organization Address City/[facility] Co de Phone Number [facility] [employer] [address] , [address] [place] [phone] * PROSTATE SPECIFIC ANTIGEN (SCREENING) (07/28/2025 8:18 AM EDT) Total Psa 2.23 <=4.00 ng/mL 07/28/2025 5:17 PM EDT [facility] [employer] Blood VENOUS BLOOD / Unknown Venipuncture / Unknown 07/28/2025 8:18 AM EDT 07/28/2025 8:18 AM EDT Narrative [facility] [employer] [facility] - 07/28/2025 5:17 PM EDT The Saqib Elecsys total PSA electrochemiluminescence (ECLIA) immunoassay is used. Results obtained with different test methods or kits cannot be used interchangeably. The Saqib method is approved for use as an aid in the detection of prostate cancer when used in conjunction with a digital rectal exam in individuals with a prostate aged 50 years or older. The assay is also indicated for the serial measurement of PSA to aid in the prognosis and management of prostate cancer patients. Elevated tPSA concentrations can only suggest the presence of prostate cancer until biopsy is performed. Levels may also be elevated in benign prostatic hyperplasia or inflammatory conditions of the prostate. Miri Baker DO CHEMISTRY ORDERABLES Final R esult Performing Organization Address City/[facility] Co de Phone Number [facility] [employer] [address] , [place] [address] * (ABNORMAL) CBC WITH DIFF (07/28/2025 8:18 AM EDT) WBC 10.7(H) 3.7 - 10.3 x10(3)/mcL 07/28/2025 2:55 PM EDT [facility] RBC 5.34 4.60 - 6.10 x10(6)/mcL 07/28/2025 2:55 PM EDT [facility] Hgb 14.9 13.7 - 17.5 g/dL 07/28/2025 2:55 PM EDT [facility] Hct 48.3 40.0 - 51.0 % 07/28/2025 2:55 PM EDT [facility] MCV 90.4 80.0 - 100.0 fL 07/28/2025 2:55 PM EDT [facility] MCH 27.9 26.0 - 34.0 pg 07/28/2025 2:55 PM EDT [facility] MCHC 30.8 30.7 - 35.5 g/dL 07/28/2025 2:55 PM EDT [facility] RDW 13.2 <=14.9 % 07/28/2025 2:55 PM EDT [facility] Platelet 254 155 - 369 x10(3)/mcL 07/28/2025 2:55 PM EDT [facility] MPV 10.8 8.8 - 12.5 fL 07/28/2025 2:55 PM EDT [facility] Neut Percent 59.2 % 07/28/2025 2:55 PM EDT [facility] Comment:Neutrophils equals s egs plus bands Imm Gran% 0.3 % 07/28/2025 2:55 PM EDT [facility] Comment:Automated count of m etamyelocytes, myelocytes and promyelocytes. Lymph Percent 25.4 % 07/28/2025 2:55 PM EDT [facility] [place]gard Percent 9.3 % 07/28/2025 2:55 PM EDT [facility] Eos Percent 4.6 % 07/28/2025 2:55 PM EDT [facility] Baso Percent 1.2 % 07/28/2025 2:55 PM EDT [facility] Neut # 6.3(H) 1.6 - 6.1 x10(3)/mcL 07/28/2025 2:55 PM EDT [facility] Comment:Neutrophils equals s egs plus bands IMMGRAN# 0.0 0.0 - 0.1 x10(3)/[facility] 07/28/2025 2:55 PM EDT [facility] Comment:Automated count of m etamyelocytes, myelocytes and promyelocytes. An absolute IG <0.1 is reported as 0.0. Lymph # 2.7 1.2 - 3.9 x10(3)/[facility] 07/28/2025 2:55 PM EDT [facility] [place]gard # 1.0(H) 0.3 - 0.9 x10(3)/[facility] 07/28/2025 2:55 PM EDT [facility] Eos# 0.5 0.0 - 0.5 x10(3)/[facility] 07/28/2025 2:55 PM EDT [facility] Baso # 0.1 0.0 - 0.1 x10(3)/[facility] 07/28/2025 2:55 PM EDT [facility] [employer] Blood VENOUS BLOOD / Unknown Venipuncture / Unknown 07/28/2025 8:18 AM EDT 07/28/2025 8:18 AM EDT Miri Baker DO HEMATOLOGY ORDERABLES Final Result [facility] [address] [facility] , [place] [address] * (ABNORMAL) HEMOGLOBIN A1C (07/28/2025 8:18 AM EDT) Hgb A1C 6.4(H) 4.2 - 5.6 % 07/28/2025 5:29 PM EDT [facility] Est. Avg Glucose 137 mg/dL 07/28/2025 5:29 PM EDT [facility] [employer], [facility] Blood VENOUS BLOOD / Unknown Venipuncture / Unknown 07/28/2025 8:18 AM EDT 07/28/2025 8:18 AM EDT Narrative [facility], [facility] - 07/28/2025 5:29 PM EDT REFERENCE RANGE: Normal: 4.0-5.6% Pre-diabetes: 5.7-6.4% Provisional diagnosis of diabetes: >6.4% Hgb F>10% and anything which shortens red cell survival, such as hemolytic anemia, or unstable hemoglobin variants such as HbSS, HbSC, or HbCC, will lower the HbA1c value associated with a given level of glycemic control. us Miri Baker DO CHEMISTRY ORDERABLES Final R esult [facility] [address] [facility] , [address] [place] [phone] * (ABNORMAL) COMPREHENSIVE METABOLIC PANEL (07/28/2025 8:18 AM EDT) Sodium 140 136 - 145 mmol/L 07/28/2025 4:59 PM EDT [facility] Potassium 5.7(H) 3.5 - 5.0 mmol/L 07/28/2025 4:59 PM EDT [facility] Chloride 101 98 - 107 mmol/L 07/28/2025 4:59 PM EDT [facility] Total CO2 27 22 - 29 mmol/L 07/28/2025 4:59 PM EDT [facility] Anion Gap 12 7 - 16 mmol/L 07/28/2025 4:59 PM EDT [facility] Calcium 9.9 8.8 - 10.4 mg/dL 07/28/2025 4:59 PM EDT [facility] Glucose Lvl 108(H) 70 - 99 mg/dL 07/28/2025 4:59 PM EDT [facility] BUN 17 8 - 23 mg/dL 07/28/2025 4:59 PM EDT [facility] Creatinine 0.94 0.67 - 1.30 mg/dL 07/28/2025 4:59 PM EDT [facility] Albumin 4.2 3.2 - 4.6 gm/dL 07/28/2025 4:59 PM EDT [facility] Total Protein 7.4 6.4 - 8.3 gm/dL 07/28/2025 4:59 PM EDT [facility] Bili Total 0.2 0.2 - 1.4 mg/dL 07/28/2025 4:59 PM EDT [facility] ALT 12 <=41 U/L 07/28/2025 4:59 PM EDT [facility] AST 16 <=40 U/L 07/28/2025 4:59 PM EDT [facility] Alk Phos 98 40 - 129 U/L 07/28/2025 4:59 PM EDT [facility] eGFR (CKD-EPIcr 2020) 89 >=60 mL/min/1.7 3 m2 07/28/2025 4:59 PM EDT [facility] Comment:Estimated GFR was ca lculated using the CKD-EPIcr (2020) equation refit without race. The equation is recommended by the National Kidney Foundation - [place] Society of Nephrology Task Force. Blood VENOUS BLOOD / Unknown Venipuncture / Unknown 07/28/2025 8:18 AM EDT 07/28/2025 8:18 AM EDT us Miri Baker DO CHEMISTRY ORDERABLES Final R esult [facility], [facility] [address] , [place] [address] * (ABNORMAL) COLOGUARD (03/10/2024 2:30 PM EDT) COLOGUARD CLINICAL REPORT Positive( A) Negative [facility] Comment: POSITIVE TEST RESULT. A positive Cologuard result should be followed with a colonoscopy or visual examination of the colon. The normal value (reference range) for this assay is negative. TEST DESCRIPTION: Composite algorithmic analysis of stool DNA-biomarkers with hemoglobin immunoassay. Quantitative values of individual biomarkers are not reportable and are not associated with individual biomarker result reference ranges. Cologuard is intended for colorectal cancer screening of adults of either sex, 45 years or older, who are at average-risk for colorectal cancer (CRC). Cologuard has been approved for use by the U.S. FDA. The performance of Cologuard was established in a cross sectional study of average-risk adults aged 50-84. Cologuard performance in patients ages 45 to 49 years was estimated by sub-group analysis of near-age groups. Colonoscopies performed for a positive result may find as the most clinically significant lesion: colorectal cancer [4.0%], advanced adenoma (including sessile serrated polyps greater than or equal to 1cm diameter) [20%] or non- advanced adenoma [31%]; or no colorectal neoplasia [45%]. These estimates are derived from a prospective cross-sectional screening study of 10,000 individuals at average risk for colorectal cancer who were screened with both Cologuard and colonoscopy. (Halie Mcgraw al, N Engl J Med 2014;370(14):9135-4080.) Cologuard may produce a false negative or false positive result (no colorectal cancer or precancerous polyp present at colonoscopy follow up). A negative Cologuard test result does not guarantee the absence of CRC or advanced adenoma (pre-cancer). The current Cologuard screening interval is every 3 years. ([place] Cancer Society and U.S. Multi-Society Task Force). Cologuard performance data in a 10,000 patient pivotal study using colonoscopy as the reference method can be accessed at the following location: www.[employer]Love/results. Additional description of the Cologuard test process, warnings and precautions can be found at www.[employer]. Stool 03/10/2024 2:30 PM EDT 03/11/2024 11:40 AM EDT Miri Baker DO [employer] - ORDERABLES F inal Result [facility] [address] [place] [address] [facility] [address] [place] [phone] * HCV ANTIBODY SCREEN W/ REFLEX (01/27/2024 11:01 AM EST) Hep C Ab Non-Reactiv e Non-Reacti ve 01/27/2024 5:40 PM EST [facility] Blood VENOUS BLOOD / Unknown Venipuncture / Unknown 01/27/2024 11:01 AM EST 01/27/2024 11:01 AM EST us Miri Baker DO HEMATOLOGY ORDERABLES Final Result [facility] [address] [facility] , [address] [place] [phone] from Last 3 Months or Most Recently Relevant to Health Maintenance Insurance HU[employer] MEDICARE HMO MR HU[employer]NA MEDICARE HMO MR Advance Directives For more information, please contact: [phone] * Full Code (Latest Code Status on File) Date Activated Date Inactivated Comments 03/24/2024 2:01 PM 03/25/2024 3:47 PM Care Teams Administrative Director Relationship Specialty Start Date End Date Miri Baker DO [email or web address] [place] [address] PCP - General Family Medicine 01/27/24
--- OUTSIDE RECORDS SUMMARY | 2025-10-13 15:06 | XMS_ITS | Encounter Summary ---
Author Organization [place] [address] Care Team Providers Care Storm Chaser Name Role Phone Miri Baker DO Primary Care Provider [phone] Reason for Visit * Reason Onset Date Comments Results 07/29/2025 Labs 07/28 Encounter Details Date Type Department Care Team (Late st Contact Info) Description 07/29/2025 Results Follow-Up [facility] [address] [place] [address] Miri Baker, DO [address] [place] [address] LIPID PANEL REFLEX, HEMOGLOBIN A1C, CBC WITH DIFF, Additional followed-up results: 2 Social History Tobacco Use Types Packs/Day Years Used Date Smoking Tobacco: Former Cigarettes Alcohol Use Standard Drinks/Week Comments No 0 (1 standard drink = 0.6 oz pur e alcohol) [facility] Utilities Answer Date Recorded In the past 12 months has [employer], gas, oil, or water [employer] threatened to shut off services in your home? No 03/24/2024 Overall Financial Resource Strain (CARDIA) Answe r Date Recorded How hard is it for you to pa y for the very basics like food, housing, medical care, and heating? Not very hard 03/24/2024 PHQ-2 Answer Date Recorded PHQ-2 Total Score 0 07/28/2025 [facility] [place] of Occupat ional Health - Occupational Stress Questionnaire Answer Date Recorded [...] money to get more. Never true 03/24/2024 [facility] IP Transportation Answer D ate Recorded [...] on file Sexual Orientation Not on file documented as of this encounter Ordered Prescriptions Prescription Sig Dispense Quantity Refills Last Filled Start Date End Date atorvastatin (LIPITOR) 80 mg Oral TabletIndications: Hyperlipidemia with target LDL less than 100 Take 1 Tablet by mouth daily for 360 days. 07/29/2025 07/24/2026 documented in this encounter Progress Notes * Miri Baker DO - 07/29/2025 7:49 AM EDT A1c was 6.4 which is prediabetes range but very close to diabetic which is 6.5 He needs to make diet changes and I recommend starting metformin to help lower this. If he is okay with this please let me know and I will send it in Cholesterol looks okay. I will send in refills of his cholesterol medication for him to continue. Potassium elevated. Recommend low potassium diet and need recheck next week. Please get him scheduled Prostate screening was normal documented in this encounter Miscellaneous Notes * [facility] 08/26/[facility]25 9:04 AM EDT Images from the original note were not included. Select the most appropriate reason for this telephone message: Patient Calling for Results Patient called for results on Lab Which Provider ordered the test? Dr. Baker Date of test: 07/28 Advised patient of: abnormal result. Patient Instructions/ Questions: He states Dr. Osei started him on metformin 500mg two time a dayabout 3 months ago. He says he has not missed any doses prior to his labs. Medications Ordered/Pended (if yes, list medication): No Medications/Orders Needed (if yes, list orders): No Pharmacy Location Verified: Yes [facility] Other: Results given to patient Miri Baker DO 07/29/2025 7:49 AM EDT A1c was 6.4 which is prediabetes range but very close to diabetic which is 6.5 He needs to make diet changes and I recommend starting metformin to help lower this. If he is okay with this please let me know and I will send it in Cholesterol looks okay. I will send in refills of his cholesterol medication for him to continue. Potassium elevated. Recommend low potassium diet and need recheck next week. Please get him scheduled Prostate screening was normal documented in this encounter Plan of Treatment Not on file documented as of this encounter Goals Goal Patient Goal Type Associated Problems Recent Progress Patient-Stated? Author Blood Pressure < 140/90 Blood Pressure 110/70(2024 7:53 AM EDT) No Miri Baker DO Maintain a healthy diet, exercise regularly and maintain an ideal body weight General No Miri Baker DO Stay Tobacco Free Lifestyle Miri Baker DO documented as of this encounter Visit Diagnoses Diagnosis Prediabetes- Primary Other abnormal glucose Hyperlipidemia with target LDL less than 100 Other and unspecified hyperlipidemia documented in this encounter Discontinued Medications Medication Sig Discontinue Reason Start Date End Da te atorvastatin (LIPITOR) 80 mg Oral TabletIndications:Hyperl ipidemia with target LDL less than 100 Take 1 Tablet by mouth daily for 360 days. Reorder 01/27/2024 07/29/2025 documented as of this encounter Additional Health Concerns Assessment Noted Time A fall risk assessment has been complete d for the patient 07/28/2025 7:55 AM EDT documented as of this encounter Care Teams Storm Chaser Relationship Specialty Start Date End Date Miri Baker DO [address] [place] [address] PCP - General Family Medicine 01/27/24 documented as of this encounter
--- OUTSIDE RECORDS SUMMARY | 2025-10-13 15:06 | XMS_ITS | Encounter Summary ---
Author Organization [place] [address] Care Team Providers Care Political Science Instructor Name Role Phone Miri Baker Primary Care Provider [phone] Encounter Details Date Type Department Care Team (Late st Contact Info) Description 08/30/2025 Orders Only [facility] [address] [place] [address] Thea Sen MA Social History Tobacco Use Types Packs/Day Years Used Date Smoking Tobacco: Former Cigarettes Alcohol Use Standard Drinks/Week Comments No 0 (1 standard drink = 0.6 oz pur e alcohol) [facility] Utilities Answer Date Recorded In the past 12 months has e electric, gas, oil, or water company threatened to shut off services in your home? No 03/24/2024 Overall Financial Resource Strain (CARDIA) Answe r Date Recorded How hard is it for you to pa y for the very basics like food, housing, medical care, and heating? Not very hard 03/24/2024 PHQ-2 Answer Date Recorded PHQ-2 Total Score 0 07/28/2025 [facility] [place] of Occupat ional Health - Occupational Stress [...] money to get more. Never true 03/24/2024 [facility] IP Transportation Answer D ate Recorded In [...] on file documented as of this encounter Plan of Treatment Not on file documented as of this encounter Goals Goal Patient Goal Type Associated Problems Recent Progress Patient-Stated? Author Blood Pressure < 140/90 Blood Pressure 110/70(2024 7:53 AM EDT) No Miri Baker DO Maintain a healthy diet, exercise regularly and maintain an ideal body weight General No Miri Baker DO Stay Tobacco Free Lifestyle No Miri Baker DO documented as of this encounter Visit Diagnoses Not on filedocumented in this encounter Historical Medications * This list may reflect changes made after this encounter. metFORMIN (GLUCOPHAGE) 500 mg Oral Tablet Take 500 mg by mouth 2 times daily. 06/26/2025 added in this encounter Additional Health Concerns Assessment Noted Time A fall risk assessment has been complete d for the patient 07/28/2025 7:55 AM EDT documented as of this encounter Care Teams Political Science Instructor Relationship Specialty Start Date End Date Miri Baker DO [place] [address] PCP - General Family Medicine 01/27/24 documented as of this encounter
--- OUTSIDE RECORDS SUMMARY | 2025-10-13 15:06 | XMS_ITS | Encounter Summary ---
Author Organization [place] Address [place] [address] Care Team Providers Care Interpreter And Translator Name Role Phone Miri Baker DO Primary Care Provider [phone] Reason for Visit * Reason Comments Medication Refill Encounter Details Date Type Department Care Team (Late st Contact Info) Description 09/15/2025 Refill [facility] [address] [place] [address] Miri Baker, DO [address] [place] [id number] Medication Refill Social History Tobacco Use Types Packs/Day Years Used Date Smoking Tobacco: Former Cigarettes Alcohol Use Standard Drinks/Week Comments No 0 (1 standard drink = 0.6 oz pur e alcohol) [facility] Utilities Answer Date Recorded In the past 12 months has [employer] electric, gas, oil, or water company threatened to shut off services in your home? No 03/24/2024 Overall Financial Resource Strain (CARDIA) Answe r Date Recorded How hard is it for you to pa y for the very basics like food, housing, medical care, and heating? Not very hard 03/24/2024 PHQ-2 Answer Date Recorded PHQ-2 Total Score 0 07/28/2025 [facility] [place] of Occupat ional Health - Occupational Stress [...] money to buy more. Never true 03/24/20 Within the past 12 months, t he food you bought just didn't last and you didn't have money to get more. Never true 03/24/2024 [facility] IP Transportation Answer D ate Recorded In [...] Refills Last Filled Start Date End Date ezetimibe (ZETIA) 10 mg Oral Tablet TAKE 1 TABLET EVERY NIGHT 90 Tablet 3 09/15/2025 documented in this encounter Plan of Treatment [...] Diagnoses Not on filedocumented in this encounter Discontinued Medications Medication Sig Discontinue Reason Start Date End Da te ezetimibe (ZETIA) 10 mg Oral Tablet TAKE 1 TABLET EVERY NIGHT 11/26/2024 09/15/2025 documented as of this encounter Additional Health Concerns Assessment Noted Time A fall risk assessment has been complete d for the patient 07/28/2025 7:55 AM EDT documented as of this encounter Care Teams Interpreter And Translator Relationship Specialty Start Date End Date Miri Baker DO [address] [place] [address] PCP - General Family Medicine 01/27/24 documented as of this encounter
== END 2025-10-12 23:59 | disposition home or self-care (01) ==
LOC: LAB.DROPOF 10-13 13:46
PROVIDERS: PCP Family Medicine; Visit Provider Family Medicine
DX: N40.0 Benign prostatic hyperplasia without lower urinary tract symptoms (principal); E11.9 Type 2 diabetes mellitus without complications
CPT/HCPCS: 80053; 82043; 82570; G0103

== ENCOUNTER 2025-10-27 14:38 | Outpatient (CLI) | payer MEDICARE, SELFPAY ==
--- OUTSIDE RECORDS SUMMARY | 2025-10-27 14:41 | XMS_ITS | Encounter Summary ---
Author Organization [place] Address One [employer] [place] [address] Care Team Providers Care Broacher Name Role Phone Miri Baker DO Primary Care Provider Reason for Visit * Reason Onset Date Comments Medication Refill 10/14/2025 Encounter Details Date Type Department Care Team (Late st Contact Info) Description 10/14/2025 Telephone [facility] [address] [place] [address] Miri Baker DO [address] [place], [place] [id number] Medication Refill Social History Tobacco Use Types Packs/Day Years Used Date Smoking Tobacco: Former Cigarettes Alcohol Use Standard Drinks/Week Comments No 0 (1 standard drink = 0.6 oz pur e alcohol) [facility] Utilities Answer Date Recorded In the past 12 months has [employer] electric, gas, oil, or water company threatened to shut off services in your home? No 03/24/2024 Overall Financial Resource Strain (CARDIA) Answe r Date Recorded How hard is it for you to pa y for the very basics like food, housing, medical care, and heating? Not very hard 03/24/2024 PHQ-2 Answer Date Recorded PHQ-2 Total Score 0 07/28/2025 [facility] [place] of Occupat ional Health - Occupational Stress [...] money to get more. Never true 03/24/2024 [facility] IP Transportation Answer D ate Recorded [...] Refills Last Filled Start Date End Date ticagrelor (BRILINTA) 90 mg Oral Tablet Take 1 Tablet by mouth 2 times daily. 180 Tablet 3 10/14/2025 PARoxetine (PAXIL) 20 mg Oral TabletIndications: Generalized anxiety disorder TAKE 1 TABLET BY MOUTH ONCE DAILY FOR NERVES 10/14/2025 metoprolol (LOPRESSOR) 25 mg Oral Tablet Take 0.5 Tablets by mouth every 12 hours. 90 Tablet 2 10/14/2025 metFORMIN (GLUCOPHAGE) 500 mg Oral Tablet Take 1 Tablet by mouth 2 times daily. 90 Tablet 2 10/14/2025 ezetimibe (ZETIA) 10 mg Oral Tablet Take 1 Tablet by mouth nightly. 90 Tablet 3 10/14/2025 atorvastatin (LIPITOR) 80 mg Oral TabletIndications: Hyperlipidemia with target LDL less than 100 Take 1 Tablet by mouth daily. 10/14/2025 aspirin 81 mg Oral Tablet, Chewable Take 1 Tablet by mouth daily (with breakfast). 10/14/2025 documented in this encounter Miscellaneous Notes * Telephone Encounter - Thea Sen MA - 10/14/2025 1:17 PM EST Medications sent to [facility] in [place]. * Telephone Encounter - Orly Mendozaeufemia Posey - 10/14/2025 12:50 PM EST Pt is requesting that all of his medications be transferred to [facility] in [place]. Please advise documented in this encounter Plan of Treatment Not on file documented as of this encounter Goals Goal Patient Goal Type Associated Problems Recent Progress Patient-Stated? Author Blood Pressure < 140/90 Blood Pressure 110/70(2024 7:53 AM EDT) No Miri Baker DO Maintain a healthy diet, exercise regularly and maintain an ideal body weight General No Miri Baker, Stay Tobacco Free Lifestyle No Miri Baker DO documented as of this encounter Visit Diagnoses Diagnosis Hyperlipidemia with target LDL less than 100 Other and unspecified hyperlipidemia Generalized anxiety disorder documented in this encounter Discontinued Medications Medication Sig Discontinue Reason Start Date End Da te PARoxetine (PAXIL) 20 mg Oral TabletIndications:Genera lized anxiety disorder TAKE 1 TABLET BY MOUTH ONCE DAILY FOR NERVES Reorder 01/27/2024 10/14/2025 aspirin 81 mg Oral Tablet, Chewable Take 1 Tablet by mouth daily (with breakfast). Reorder 03/26/2024 10/14/2025 ticagrelor (BRILINTA) 90 mg Oral Tablet Take 1 Tablet by mouth 2 times daily. Reorder 09/08/2024 10/14/2025 atorvastatin (LIPITOR) 80 mg Oral TabletIndications:Hyperl ipidemia with target LDL less than 100 Take 1 Tablet by mouth daily for 360 days. Reorder 07/29/2025 10/14/2025 metoprolol (LOPRESSOR) 25 mg Oral Tablet Take 0.5 Tablets by mouth every 12 hours. Reorder 08/03/2025 10/14/2025 metFORMIN (GLUCOPHAGE) 500 mg Oral Tablet Take 500 mg by mouth 2 times daily. Reorder 06/26/2025 10/14/2025 ezetimibe (ZETIA) 10 mg Oral Tablet TAKE 1 TABLET EVERY NIGHT Reorder 09/15/2025 10/14/2025 documented as of this encounter Additional Health Concerns Assessment Noted Time A fall risk assessment has been complete d for the patient 07/28/2025 7:55 AM EDT documented as of this encounter Care Teams Broacher Relationship Specialty Start Date End Date Miri Baker DO [address] [facility] [place] [address] PCP - General Family Medicine 01/27/24 documented as of this encounter
--- OUTSIDE RECORDS SUMMARY | 2025-10-27 14:41 | XMS_ITS | Encounter Summary ---
Author Organization [place] [address] Care Team Providers Care Store Team Member Name Role Phone Miri Baker DO Primary Care Provider [phone] Reason for Visit * Reason Onset Date Comments Results 07/29/2025 Labs 07/28 Encounter Details Date Type Department Care Team (Late st Contact Info) Description 07/29/2025 Results [facility]Up [facility] [address] [place] [address] Miri Baker, DO [address] [place] [id number] LIPID PANEL REFLEX, HEMOGLOBIN A1C, CBC WITH DIFF, Additional followed-up results: 2 Social History Tobacco Use Types Packs/Day Years Used Date Smoking Tobacco: Former Cigarettes Alcohol Use Standard Drinks/Week Comments No 0 (1 standard drink = 0.6 oz pur e alcohol) [facility] Utilities Answer Date Recorded In the past 12 months has [employer], gas, oil, or water [employer] threatened to shut off services in your home? No 03/24/2024 Overall Financial Resource Strain (CARDIA) Answe r Date Recorded How hard is it for you to pa y for the very basics like food, housing, medical care, and heating? Not very hard 03/24/2024 PHQ-2 Answer Date Recorded PHQ-2 Total Score 0 07/28/2025 [facility] of Occupat ional Health - Occupational Stress [...] money to get more. Never true 03/24/[address] [facility] IP Transportation Answer D ate Recorded [...] by mouth daily for 360 days. 07/29/2025 10/14/2025 documented in this encounter Progress Notes * [...] Notes * [facility] - [facility] 9:04 AM EDT Images [...] No Pharmacy Location Verified: Yes Pharmacy Location: [facility] Other: Results given to patient Miri [...] documented as of this encounter Care Teams Store Team Member Relationship Specialty Start Date End Date Miri Baker DO [address] [place] [address] PCP - General Family Medicine 01/27/24 documented as of this encounter
--- OUTSIDE RECORDS SUMMARY | 2025-10-27 14:41 | XMS_ITS | Encounter Summary ---
Author Organization [place] [address] Care Team Providers Care Business Objects Consultant Name Role Phone Miri Baker Primary Care Provider [phone] Encounter Details Date Type Department Care Team (Late st Contact Info) Description 08/30/2025 Orders Only [facility] [address] [place] [address] Thea Sen MA Social History Tobacco Use Types Packs/Day Years Used Date Smoking Tobacco: Former Cigarettes Alcohol Use Standard Drinks/Week Comments No 0 (1 standard drink = 0.6 oz pur e alcohol) [facility] Utilities Answer Date Recorded In the [...] Date Recorded PHQ-2 Total Score 0 07/28/2025 [facility] [place] of Occupat ional Health - Occupational Stress [...] money to get more. Never true 03/24/2024 [facility] IP Transportation Answer D ate Recorded [...] mg by mouth 2 times daily. 06/26/2025 10/14/2025 added in this encounter Additional Health Concerns Assessment Noted Time A fall risk assessment has been complete d for the patient 07/28/2025 7:55 AM EDT documented as of this encounter Care Teams Business Objects Consultant Relationship Specialty Start Date End Date Miri Baker DO [employer] [place] [address] PCP - General Family Medicine 01/27/24 documented as of this encounter
--- OUTSIDE RECORDS SUMMARY | 2025-10-27 14:41 | XMS_ITS | Encounter Summary ---
Author Organization [place] Address One [employer] [place] [address] Care Team Providers Care Child Protective Services Social Worker Name Role Phone Miri Baker DO Primary Care Provider [phone] Reason for Visit * Reason Comments Medication Refill Encounter Details Date Type Department Care Team (Late st Contact Info) Description 09/15/2025 Refill [facility] [address] [place] [address] Miri Baker, DO [address] [place] [id number] Medication Refill Social History Tobacco Use Types Packs/Day Years Used Date Smoking Tobacco: Former Cigarettes Alcohol Use Standard Drinks/Week Comments No 0 (1 standard drink = 0.6 oz pur e alcohol) [facility] Utilities Answer Date Recorded In the past 12 months has [employer] electric, gas, oil, or water company threatened to shut off services in your home? No 03/24/2024 Overall Financial Resource Strain (CARDIA) Answe r Date Recorded How hard is it for you to pa y for the very basics like food, housing, medical care, and heating? Not very hard 03/24/2024 PHQ-2 Answer Date Recorded PHQ-2 Total Score 0 07/28/2025 [facility] [place] of Occupat ional Health - Occupational Stress [...] get more. Never true 03/24/2024 [facility] IP Transportation Answer D ate Recorded [...] TABLET EVERY NIGHT 90 Tablet 3 09/15/2025 10/14/2025 documented in this encounter Plan of Treatment [...] documented as of this encounter Care Teams Child Protective Services Social Worker Relationship Specialty Start Date End Date Miri Baker DO [address] [place] [address] PCP - General Family Medicine 01/27/24 documented as of this encounter
--- OUTSIDE RECORDS SUMMARY | 2025-10-27 14:41 | XMS_ITS | Clinical Summary ---
Author Organization [facility] Address [address] [place] [address] Phone Care Team Providers Care Straddle Bug Driver Name Role Phone Miri Baker DO Primary Care Provider [phone] Allergies No known active allergies Medications albuterol sulfate (ACCUNEB) 2.5 mg/0.5 mL Inhl Solution for Nebulization Take 2.5 mg by nebulization 0800, 1200, 1600, 2000. Active lisinopriL-hydro chlorothiazide (PRINZIDE;ZESTOR ETIC) 20-12.5 mg Oral TabletIndication s:Essential hypertension Take 1 Tablet by mouth daily. 05/06/20 24 Active aspirin 81 mg Oral Tablet, Chewable Take 1 Tablet by mouth daily (with breakfast). 10/14/20 25 Active atorvastatin (LIPITOR) 80 mg Oral TabletIndication s:Hyperlipidemia with target LDL less than 100 Take 1 Tablet by mouth daily. 10/14/20 25 026 Active ezetimibe (ZETIA) 10 mg Oral Tablet Take 1 Tablet by mouth nightly. 90 Tablet 3 10/14/20 25 Active metFORMIN (GLUCOPHAGE) 500 mg Oral Tablet Take 1 Tablet by mouth 2 times daily. 90 Tablet 2 10/14/20 25 Active metoprolol (LOPRESSOR) 25 mg Oral Tablet Take 0.5 Tablets by mouth every 12 hours. 90 Tablet 2 10/14/20 25 Active PARoxetine (PAXIL) 20 mg Oral TabletIndication s:Generalized anxiety disorder TAKE 1 TABLET BY MOUTH ONCE DAILY FOR NERVES 10/14/20 25 Active ticagrelor (BRILINTA) 90 mg Oral Tablet Take 1 Tablet by mouth 2 times daily. 180 Tablet 3 10/14/20 Active PARoxetine (PAXIL) 20 mg Oral TabletIndication s:Generalized anxiety disorder TAKE 1 TABLET BY MOUTH ONCE DAILY FOR NERVES 01/27/20 24 Discontin ued(Reord er) aspirin 81 mg Oral Tablet, Chewable Take 1 Tablet by mouth daily (with breakfast). 03/26/20 24 025 Discontin ued(Reord er) ticagrelor (BRILINTA) 90 mg Oral Tablet Take 1 Tablet by mouth 2 times daily. 180 Tablet 3 09/08/20 24 025 Discontin ued(Reord er) atorvastatin (LIPITOR) 80 mg Oral TabletIndication s:Hyperlipidemia with target LDL less than 100 Take 1 Tablet by mouth daily for 360 days. 07/29/20 025 Discontin ued(Reord er) metoprolol (LOPRESSOR) 25 mg Oral Tablet Take 0.5 Tablets by mouth every 12 hours. 90 Tablet 2 08/03/20 25 025 Discontin ued(Reord er) metFORMIN (GLUCOPHAGE) 500 mg Oral Tablet Take 500 mg by mouth 2 times daily. 06/26/20 025 Discontin ued(Reord er) ezetimibe (ZETIA) 10 mg Oral Tablet TAKE 1 TABLET EVERY NIGHT 90 Tablet 3 09/15/20 025 Discontin ued(Reord er) Active Problems Problem Noted Date Diagnosed Date [...] reduction of the stenosis to 0% and zoroastrian of the KODI-3 flow 3. Left ventricular [...] reduction of the stenosis to 0% and zoroastrian of the KODI-3 flow 3. 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 - Pt [...] lisinopril/hctz, was stopped after hospital admission for OH by cardiology Assessment & Plan (07/28/2025 8:37 [...] Encounters Date Type Department Care Team Description 10/14/[address] [place] [phone] Miri Baker, DO Medication Refill 09/15/[address] [place] [phone] Miri Baker, DO Medication Refill 08/30/2025 Orders Only [address] [place] [phone] Thea Sen MA 08/03/[address] [place] [phone] Miri Baker, DO Medication Refill 07/30/[address] [place] [phone] Miir Baker, DO Results 07/29/2025 Results Follow-Up [address] [place] [phone] Miri Baker, DO LIPID PANEL REFLEX, HEMOGLOBIN A1C, CBC WITH DIFF, Additional followed-up results: 2 07/28/2025 8:00 AM EDT Office Visit [address] [place] [phone] Miri Baker, DO Medicare annual wellness visit, subsequent (Primary Dx); Screening for malignant neoplasm of prostate; Personal history of smoking; Diabetes mellitus screening; Essential hypertension; Hyperlipidemia with target LDL less than 100; Pulmonary emphysema, unspecified emphysema type (HCC) from Last 3 Months Surgical History Surgery Date Site/Laterality Comments CORONARY PERCUTANEOUS INTERVENTION(PCI) 03/23/2024 N/A Surgeon: Constance Joiner MD; Location: [facility]; Service: Cardiac Medical devices from this [...] 0.6 oz pur e alcohol) [facility] Utilities Answer Date Recorded In the past 12 months has [employer], gas, oil, or water [employer] threatened to shut off services in your home? No 03/24/2024 Overall Financial Resource Strain (CARDIA) Answe r Date Recorded How hard is it for you to pa y for the very basics like food, housing, medical care, and heating? Not very hard 03/24/2024 PHQ-2 Answer Date Recorded PHQ-2 Total Score 0 07/28/2025 [facility] [place] of Occupat ional Health - Occupational Stress [...] get more. Never true 03/24/2024 [facility] HRSN [facility] IP Transportation Answer D ate Recorded [...] Pressure 110/70(2024 7:53 AM EDT) No Miri Baker, DO Maintain a healthy diet, exercise regularly and maintain an ideal body weight General No Miri Baker, DO Stay Tobacco Free Lifestyle No Miri Baker, DO Medical Devices Implanted Type Area Scouring Machine Operator Device Identifier Shelf Expiration Date Model / Serial / Lot System Stent Coronary Abner Synergy Xd 4mm X 28mm Mr Rx [employer] - [id number] Implanted:Qty: 1 on 03/23/2024 by Constance Joiner MD at [facility] N/A: [employer] [id number] 04/02/2025 [id number] 400 / / [id number] Procedures Procedure Name Priority Date/Time Associated Diagnosis [...] 159 <200 mg/dL 07/28/2025 4:59 PM EDT [facility] Comment: < 200 Desirable 200 - 239 Borderline High >= 240 High Triglyceride 212(H) <150 mg/dL 07/28/2025 4:59 PM EDT [facility] Comment: < 150 Normal 150 - 199 Borderline High 200 - 499 High >= 500 Very High HDL 47 >=40 mg/dL 07/28/2025 4:59 PM EDT [facility] Comment: > 60 Optimal 40 - 60 Acceptable < 40 Low LDL Calculated 77 <100 mg/dL 07/28/2025 4:59 PM EDT [facility] Comment: < 100 Optimal 100 - 129 Near or above optimal 130 - 159 Borderline High 160 - 189 High >= 190 Very High The National Institutes of Health (NIH) equation is used for all lipid panels that report calculated LDL (LDL-C). Non-HDL-C Calculated 112 <=129 mg/dL 07/28/2025 4:59 PM EDT [facility] Comment: <130 Desirable 130-159 Above Desirable 160-189 Borderline High 190-219 High >= 220 Very High Fasting Specimen? Yes None 025 4:59 PM EDT [facility] Blood VENOUS BLOOD / Unknown Venipuncture / Unknown 07/28/2025 8:18 AM EDT 07/28/2025 8:18 AM EDT us Miri Baker DO CHEMISTRY ORDERABLES Final R esult [facility] [address] , [place] [address] * PROSTATE SPECIFIC ANTIGEN (SCREENING) (07/28/2025 8:18 AM EDT) Total Psa 2.23 <=4.00 ng/mL 07/28/2025 5:17 PM EDT [facility] Blood VENOUS BLOOD / Unknown Venipuncture / Unknown 07/28/2025 8:18 AM EDT 07/28/2025 8:18 AM EDT Narrative [facility] - 07/28/2025 5:17 PM EDT [facility] [...] hyperplasia or inflammatory conditions of the prostate. us Miri Baker DO CHEMISTRY ORDERABLES Final R esult [facility] [address] , [place] [address] * (ABNORMAL) CBC WITH DIFF (07/28/2025 8:18 [...] 07/28/2025 2:55 PM EDT [facility] Neut Percent 59.2 % 07/28/2025 2:55 PM EDT [facility] Comment:Neutrophils equals s egs plus bands Imm Gran% 0.3 % 07/28/2025 2:55 PM EDT [facility] Comment:Automated count of m etamyelocytes, myelocytes and promyelocytes. Lymph Percent 25.4 % 07/28/2025 2:55 PM EDT [facility] Irion Percent 9.3 % 07/28/2025 2:55 PM EDT [facility] Eos Percent 4.6 % 07/28/2025 2:55 PM EDT [facility] Baso Percent 1.2 % 07/28/2025 2:55 PM EDT [facility] Neut # 6.3(H) 1.6 - 6.1 x10(3)/[facility] 07/28/2025 2:55 PM EDT [facility] Comment:Neutrophils equals s egs plus bands IMMGRAN# 0.0 0.0 - 0.1 x10(3)/[facility] 07/28/2025 2:55 PM EDT [facility] Comment:Automated count of m etamyelocytes, myelocytes and promyelocytes. An absolute IG <0.1 is reported as 0.0. Lymph # 2.7 1.2 - 3.9 x10(3)/[facility] 07/28/2025 2:55 PM EDT [facility] Irion # 1.0(H) 0.3 - 0.9 x10(3)/[facility] 07/28/2025 2:55 PM EDT [facility] Eos# 0.5 0.0 - 0.5 x10(3)/[facility] 07/28/2025 2:55 PM EDT [facility] Baso # 0.1 0.0 - 0.1 x10(3)/[facility] 07/28/2025 2:55 PM EDT [facility] Blood VENOUS BLOOD / Unknown Venipuncture / Unknown 07/28/2025 8:18 AM EDT 07/28/2025 8:18 AM EDT Miri Baker DO HEMATOLOGY ORDERABLES Final Result Performing Organization Address [facility] Co de Phone Number [facility] [employer], [address] , [place] [address] * (ABNORMAL) HEMOGLOBIN A1C (07/28/2025 8:18 AM EDT) Hgb A1C 6.4(H) 4.2 - 5.6 % 07/28/2025 5:29 PM EDT [facility] [employer] Est. Avg Glucose 137 mg/dL 07/28/2025 5:29 PM EDT [facility] [employer] Blood VENOUS BLOOD / Unknown Venipuncture / Unknown 07/28/2025 8:18 AM EDT 07/28/2025 8:18 AM EDT Narrative [facility] [employer] - 07/28/2025 5:29 PM EDT REFERENCE RANGE: Normal: 4.0-5.6% Pre-diabetes: 5.7-6.4% Provisional diagnosis of diabetes: >6.4% Hgb F>10% and anything which shortens red cell survival, such as hemolytic anemia, or unstable hemoglobin variants such as HbSS, HbSC, or HbCC, will lower the HbA1c value associated with a given level of glycemic control. Miri Baker DO CHEMISTRY ORDERABLES Final R esult Performing Organization Address [facility] Co de Phone Number [facility] [employer], [address] , [place] [address] * (ABNORMAL) COMPREHENSIVE METABOLIC PANEL (07/28/2025 8:18 [...] 07/28/2025 4:59 PM EDT [facility] Calcium 9.9 8.8 - 10.4 mg/dL 07/28/2025 4:59 PM EDT [facility] Glucose Lvl 108(H) 70 - 99 mg/dL 07/28/2025 4:59 PM EDT [facility] BUN 17 8 - 23 mg/dL 07/28/2025 4:59 PM EDT [facility] Creatinine 0.94 0.67 - 1.30 mg/dL 07/28/2025 4:59 PM EDT [facility] Albumin 4.2 3.2 - 4.6 gm/dL 07/28/2025 4:59 PM EDT [facility] Total Protein 7.4 6.4 - 8.3 gm/dL 07/28/2025 4:59 PM EDT [facility] Bili Total 0.2 0.2 - 1.4 mg/dL 07/28/2025 4:59 PM EDT [facility] ALT 12 <=41 U/L 07/28/2025 4:59 PM EDT [facility] AST 16 <=40 U/L 07/28/2025 4:59 PM EDT [facility] Alk Phos 98 40 - 129 U/L 07/28/2025 4:59 PM EDT [facility] eGFR (CKD-EPIcr 2020) 89 >=60 mL/min/1.7 3 m2 07/28/2025 4:59 PM EDT [facility] Comment:Estimated GFR was ca lculated using the CKD-EPIcr (2020) equation refit without race. The equation is recommended by the National Kidney Foundation - [place] Society of Nephrology Task Force. Blood VENOUS BLOOD / Unknown Venipuncture / Unknown 07/28/2025 8:18 AM EDT 07/28/2025 8:18 AM EDT us Miri Baker DO CHEMISTRY ORDERABLES Final R esult [facility] [address] , [address] [place] [id number] * (ABNORMAL) COLOGUARD (03/10/2024 2:30 PM EDT) COLOGUARD CLINICAL REPORT Positive( A) Negative [facility] Comment: POSITIVE TEST RESULT. A positive Cologuard [...] screened with both Cologuard and colonoscopy. (Halie Deutsch et al, N Engl J Med 2014;370(14):9574-4843.) Cologuard may produce a false negative or false positive result (no colorectal cancer or precancerous polyp present at colonoscopy follow up). A negative Cologuard test result does not guarantee the absence of CRC or advanced adenoma (pre-cancer). The current Cologuard screening interval is every 3 years. ([place] Cancer Society and U.S. Multi-Society Task Force). Cologuard performance data in a 10,000 patient pivotal study using colonoscopy as the reference method can be accessed at the following location: [email or web address] [email or web address]/results. Additional description of the Cologuard test process, warnings and precautions can be found at www.cologuard.com. Stool 03/10/2024 2:30 PM EDT 03/11/2024 11:40 AM EDT Miri Baker DO [employer]ENCE - ORDERABLES F inal Result Performing Organization Address City/[facility]/ZIP Co de Phone Number [facility] [address] [facility] [address] [place] [address] * HCV ANTIBODY SCREEN W/ REFLEX (01/27/2024 11:01 AM EST) Hep C Ab Non-Reactiv e Non-Reacti ve 01/27/2024 5:40 PM EST [facility] Blood VENOUS BLOOD / Unknown Venipuncture / Unknown 01/27/2024 11:01 AM EST 01/27/2024 11:01 AM EST Miri Baker DO HEMATOLOGY ORDERABLES Final Result Performing Organization Address [facility] Co de Phone Number [facility] [address] , [place] [address] from Last 3 Months or Most Recently Relevant to Health Maintenance Insurance [employer] MEDICARE HMO MR [employer] MEDICARE HMO MR Advance Directives For more information, please contact: [phone] * Full Code (Latest Code Status on File) Date Activated Date Inactivated Comments 03/24/2024 2:01 PM 03/25/2024 3:47 PM Care Teams Straddle Bug Driver Relationship Specialty Start Date End [place] [place] [address] PCP - General Family Medicine 01/27/24
--- NOTE | 2025-10-27 15:00 | CT_ITS ---
FINAL REPORT TECHNIQUE: Axial CT images of the chest were obtained without contrast. Low-dose protocol was utilized. This study was performed with techniques to keep radiation doses as low as reasonably achievable (ALARA). Individualized dose reduction techniques using automated exposure control or adjustment of mA and/or kV according to the patient's size were employed. CLINICAL HISTORY: lung cancer screening former smoker quit 1 year ago, 2ppd x50 years COMPARISON: 08/27/2023 FINDINGS: CT CHEST WITHOUT, LOW DOSE SCREENING CT Di Vol: 2.90 mGy DLP: 110.20 mGy*cm No significant mediastinal mass or adenopathy. There are calcified hilar lymph nodes. The heart size is normal. There is no pleural or pericardial effusion. The lung windows show no suspicious mass or nodule. Advanced changes of centrilobular emphysema are noted. Multiple calcified granulomas are seen in the right upper lobe. Limited images of the upper abdomen demonstrate no acute findings. IMPRESSION: No suspicious mass or nodule. Modifier S: Advanced changes of centrilobular emphysema. LR Category 1S: 12 month follow-up low-dose chest CT is recommended per Fleischner criteria. Reviewed, Interpreted and Dictated by Parth Lentz MD Transcribed by Tanvi Tamayo Authenticated and [facility]
== END 2025-10-27 23:59 | disposition home or self-care (01) ==
LOC: RAD 14:39
PROVIDERS: PCP Family Medicine; Visit Provider Family Medicine
DX: J43.2 Centrilobular emphysema (principal); Z12.2 Encounter for screening for malignant neoplasm of respiratory organs; Z87.891 Personal history of nicotine dependence
CPT/HCPCS: 71271